=== PATIENT | male | born 1990 | race African-American/Black ===

== ENCOUNTER 2021-05-25 17:17 | Emergency (ER) | payer MEDICAID ==
[~2021-05-25] VITALS: Ht 172.7 cm; Wt 80.0 kg
[2021-05-25 17:29] VITALS: BP 148/79
== END 2021-05-25 20:40 | disposition left against medical advice (07) ==
LOC: ER 17:17
DX: Z53.21 Procedure and treatment not carried out due to patient leaving prior to being seen by health care provider (principal)
CPT/HCPCS: 99281